=== PATIENT | female | born 1965 | race Caucasian/White ===

== ENCOUNTER 2016-10-13 13:21 | Observation (INO) | payer OTHER ==
[~2016-10-13] VITALS: Ht 165.1 cm; Wt 73.5 kg
[~2016-10-13 13:21] MED LIST: CHOL20002 PO; CITA20TA5 PO; CYCL10TA2 PO; DICY10CA3 PO; DIPH25CA58 PO; GABA-586 PO; IPRA4AER IH; OMEP40CA5 PO; OXYC-244 PO; TIZA4CAP PO; [UNRECOGNIZED DRUG - CODE] PO
[2016-10-13] MEDS ORDERED: PANT40TA5 PO (14:15)
[2016-10-13] MEDS ORDERED: ONDANSETRON PF 4 MG/2 ML VIAL. IV PRN (14:15)
[2016-10-13] MEDS ORDERED: HYDROMORPHONE 2 MG/ML VIAL. IV PRN (14:15)
[2016-10-13] MEDS ORDERED: 0.9 % SODIUM CHLORIDE 10 ML DISP.SYRIN. IV PRN (14:15)
[2016-10-13] MEDS ORDERED: ZOLPIDEM 5 MG TABLET. PO PRN (14:15)
[2016-10-13] MEDS ORDERED: ALPR0.254 PO (14:15)
[2016-10-13] MEDS ORDERED: ZOLP5TAB5 PO (14:15)
[2016-10-13] MEDS ORDERED: ATOR10TA60 PO (14:15)
[2016-10-13] MEDS ORDERED: MAG HYDROX/ALUMINUM HYD/SIMETH 30 ML ORAL.SUSP PO PRN (14:15)
[2016-10-13] MEDS ORDERED: FLUT1DIS5 IH (14:17)
[2016-10-13 15:00] VITALS: BP 177/137
--- NOTE | 2016-10-13 15:04 | PDOC ---
ASSESSMENT/PLAN Assessment/Plan [id number] H&P dictated Problems: KIT GONZALEZ MD Oct 13, 2016 15:04
--- NOTE | 2016-10-13 15:16 | EKG ---
[facility] [address] [place] [address] Test Date: 2016-10-13 Test Time: 15:14:18 Pat Name: ARACELIS HORNE Department: Room: [facility] Gender: F Math Coach: : [id number] Requested By: KIT GONZALEZ Order Number: [id number] Reading MD: Measurements Intervals [place] Rate: 72 P: 53 LA: 156 QRS: 18 QRSD: 72 T: 24 QT: 382 QTc: 420 Interpretive Statements SINUS RHYTHM QRS(T) CONTOUR ABNORMALITY CONSISTENT WITH ANTEROSEPTAL INFARCT PROBABLY OLD ABNORMAL ECG RI6.01 Compared to ECG 05/27/2016 00:37:03 Myocardial infarct finding now present Sinus tachycardia no longer present Atrial abnormality no longer present
[2016-10-13 15:26] VITALS: BP 131/79
[2016-10-13 15:31] VITALS: BP 131/79
[2016-10-13 15:38] LABS: ALBUMIN 3.8 g/dL (3.4-5.0); DIRECT BILIRUBIN 0.1 mg/dL (0.0-0.2); TOTAL BILIRUBIN 0.3 mg/dL (0.2-1.0); TOTAL PROTEIN 7.2 g/dL (6.4-8.2)
--- NOTE | 2016-10-13 16:00 | HP ---
ADMIT DATE: 10/13/2016 LOCATION: Room# 560 HISTORY OF PRESENT ILLNESS: The patient is a 50-year-old lady, who presented to the office today complaining of severe abdominal pain in the epigastric right upper quadrant area associated with nausea and vomiting, of coffee-ground emesis, this morning. She has been having symptoms of reflux and gastritis with indigestion over the last month. She has taken PPI on and off and antacids, but her symptoms continued to worsen and were much worse today. She has not eaten anything this morning to provoke the pain. She denies melena or hematochezia. She tends to be constipated. PAST MEDICAL HISTORY: Significant for hypertension, hyperlipidemia, COPD, gastroesophageal reflux disease, osteoarthritis, chronic back pain, depression, anxiety, bipolar disorder, previous history of vocal cord cyst, was removed. She does have a previous history of hepatitis. SOCIAL HISTORY: She does smoke and continues to smoke and has smoked over 30 years. She uses alcohol occasionally; denies drinking in last couple of days. She denies using drugs. REVIEW OF SYSTEMS: CONSTITUTIONAL: There is no weight loss. No fever or chills. HEENT: Denies visual changes or sore throat. RESPIRATORY: Denies increasing shortness of breath. CARDIOVASCULAR: Denies chest pain. GASTROINTESTINAL: She does have abdominal pain mostly in the epigastric and the right upper quadrant area associated with nausea and vomiting. Denies diarrhea. She does have constipation. Denies melena or hematochezia. GENITOURINARY: She does have stress incontinence. Denies dysuria. MUSCULOSKELETAL: She does have chronic arthritis and back pain, and she does take pain medications regularly that contribute to her constipation. NEUROLOGY: She denies headache or any acute changes in her sensory or motor function. IMPRESSION: 1. Acute abdominal pain with nausea and vomiting, likely gastritis, but we will check amylase and lipase and liver enzymes. Continue with proton pump inhibitor and gastrointestinal consult. She has been on proton pump inhibitor as outpatient and her symptoms continue to worsen. 2. Hypertension, hypertensive cardiovascular disease. 3. Hyperlipidemia. 4. Tobacco abuse. 5. Chronic obstructive pulmonary disease. 6. Osteoarthritis. 7. Depression, anxiety. 8. Previous history of hepatitis. KIT GONZALEZ MD DR: MITESH/shelton JOB#: [id number] / [id number]
--- NOTE | 2016-10-13 16:03 | PDOC2 ---
CONSULT Date of Consult Date of Consult DATE: 10/13/16 TIME: 15:44 Reason for Consult Reason for Consult: Abdominal pain, N, V Referring Physician Referring Physician: Dr. Knowles Source Source: Chart review, Patient History of Present Illness Reason for Visit: 50 y/o female who had onset of severe epigastric "burning" ~1000 today. Describes associated nausea and vomiting. Nature of pain not too dissimilar to her chronic dyspepsia, just more intense. After the vomiting, some more pain in RUQ and right flank. No further emesis and currently feels somewhat better. Has long h/o heartburn w/o dysphagia with associated pc bloating and early satiety. Takes pantoprazole daily, but not timed well. No prior PUD. EGD by Dr. Priscilla Mcnair in 2014 she recalls as "normal"; biopsies were taken, but pathology not accessible in [facility]. Does not use prn antacids, though GI cocktail in Dr. Knowles's office was apparently transiently helpful. No h/o GB or pancreatic disease. Has h/o HCV, treated with interferon along it sounds like historically; has had some testing in PCP office and felt "cured" (current LFT's normal). Still smokes. Denies alcohol use. May take occasional NSAID. Chronic issues with constipation; has used saline cathartics and Miralax with good effect, but takes neither regularly. No diarrhea or melena. Had colonoscopy with the EGD in July 2014 done for "bleeding"; w/in limits of poor prep, this was felt to be OK. Weight and appetite are OK. GI family history is negative. Past Medical History Cardiovascular: HTN Pulmonary: COPD Musculoskeletal: Osteoarthritis, Other (HNP) Past Surgical History Past Surgical History: Other (vocal cord polypectomy) Family History Family History: Cancer (lung/father, lung and uterine/mother), Hypertension Social History ALCOHOL: none Current Problem List Problem List Problems Medical Problems: (1) Abdominal pain Status: Acute Current Medications Current Medications Current Medications Sodium Chloride 3 ml 3 ml PRN DAILY PRN IV AFTER MEDS AND BLOOD DRAWS; Start at 14:15 Potassium Chloride/Sodium Chloride (KCl 20 Meq-NS 1,000 ml Iv Soln) 1,000 ml @ 100 mls/hr Q10H IV ; Start 10/13/16 at 14:06 Ondansetron HCl (Zofran) 4 mg PRN Q6HRS PRN IV NAUSEA/VOMITING; Start 10/13/16 at 14:15 Al Hydroxide/Mg Hydroxide (Mylanta Plus Xs) 30 ml PRN Q3HRS PRN PO HEARTBURN / GAS; Start 10/13/16 at 14:15 Zolpidem Tartrate (Ambien) 5 mg PRN QHS PRN PO INSOMNIA, MAY REPEAT IN 1HR; Start 10/13/16 at 14:15 Hydromorphone HCl (Dilaudid) 0.2 mg PRN Q1HR PRN IV PAIN; Start 10/13/16 at 14: 15 Senna/Docusate Sodium (Senna Plus) 1 tab BID PO ; Start 10/13/16 at 21:00 Pantoprazole Sodium (Protonix) 40 mg DAILYAC PO ; Start 10/14/16 at 07:30 Active Scripts Active Reported Advair 500-50 Diskus (Fluticasone/Salmeterol) 1 Each Disk.w.dev 1 Puff IH BID Pantoprazole Sodium 40 Mg Tablet.dr 20 Mg PO DAILY Atorvastatin Calcium 10 Mg Tablet 10 Mg PO HS Zolpidem Tartrate 5 Mg Tablet 1 Tab PO QHS Alprazolam 0.25 Mg Tablet 1 Tab PO TID Percocet 7.5-325 Mg Tablet (Oxycodone/Acetaminophen) 1 Each Tablet 1 Tab PO QID PRN Combivent Respimat Inhal (Ipratropium/Albuterol Sulfate) 4 Gm Aer.w.adap 20 Mcg IH PRN DAILY PRN Gabapentin 300 Mg Capsule 300 Mg PO BID Tizanidine Hcl 4 Mg Capsule 4 Mg PO PRN Q8HRS Omeprazole 40 Mg Capsule.dr 40 Mg PO DAILY Allergies Allergies: Coded Allergies: No Known Drug Allergies (Unverified , 07/23/14) ROS Review of System Other than chronic back pain, 10-point review negative except as above. Physical Exam General: Alert, Oriented X3, Cooperative, No acute distress Lungs: Clear to auscultation Heart: Regular rate, Normal S1, Normal S2, No murmurs Abdomen: Normal bowel sounds, Soft, No hepatosplenomegaly, No masses, Other ( very mild epigastric tenderness; tender along right costal margin/ribs and right flank musculature) Extremities: No cyanosis, No edema Skin: No significant lesion Neuro: Normal speech, Strength at 5/5 X4 ext, Normal tone, Sensation intact, Cranial nerves 3-12 NL, Reflexes 2+ Psych/Mental Status: Mental status NL, Mood NL MUSCULOSKELETAL: No deformity, No swelling Vitals VITALS Vital Signs Date Time Temp Pulse Resp B/P Pulse Ox O2 Delivery O2 Flow Rate FiO2 10/13/16 15:31 98.1 79 17 131/79 94 Room Air 98.1 Labs Labs Laboratory Tests Test 10/13/16 14:55 Total Bilirubin 0.3mg/dL (0.2-1.0) Direct Bilirubin 0.1mg/dL (0.0-0.2) Aspartate Amino Transf (AST/SGOT) 16U/L (15-37) Alanine Aminotransferase (ALT/SGPT) 21U/L (14-59) Alkaline Phosphatase 73U/L (46-116) Total Protein 7.2g/dL (6.4-8.2) Albumin 3.8g/dL (3.4-5.0) Amylase Level 27U/L (25-115) Lipase 55U/L (73-393) Laboratory Tests Test 10/13/16 14:55 Total Bilirubin 0.3mg/dL (0.2-1.0) Direct Bilirubin 0.1mg/dL (0.0-0.2) Aspartate Amino Transf (AST/SGOT) 16U/L (15-37) Alanine Aminotransferase (ALT/SGPT) 21U/L (14-59) Alkaline Phosphatase 73U/L (46-116) Total Protein 7.2g/dL (6.4-8.2) Albumin 3.8g/dL (3.4-5.0) Amylase Level 27U/L (25-115) Lipase 55U/L (73-393) Assessment/Plan Assessment/Plan IMP: 1. Abdominal pain, N, V. A portion of this is probably from her known GERD (w/o major injury by prior EGD historically). Can't r/o initial presentation of GB disease. Some of her right-sided tenderness is clearly musculoskeletal, perhaps related to the emesis. 2. GERD with chronic issues. Some of her refractoriness may be from less than optimal dosing of her PPI. 3. Chronic constipation, likely idiopathic. 4. H/o HCV, treated with interferon alone; a significant portion of these patients may relapse as effect not as good as with recent newer drugs. REC: 1. Continue PPI; instructed on better timing of dose. 2. OK to use antacids prn on top of the PPI. 3. Sonogram abdomen. Consider PIPIDA with GBEF if negative. 4. Could consider another colonoscopy in a few years since poor prep with last one historically. 5. Since effective, regular use of MOM or Miralax would likely help the constipation. --other pending. Thank you for allowing me to assist in the care of this patient. Please call if questions. MAXWELL MCKEON MD Oct 13, 2016 16:03
--- NOTE | 2016-10-13 16:55 | RAD ---
Chest, 2 views, 10/13/2016: History: Abdominal pain Comparison is made to a study from 06/03/2016. The heart size and pulmonary vascularity are normal. No pulmonary infiltrates are seen. There is no evidence of pleural fluid. Mild spurring is present in the spine. IMPRESSION: No acute cardiopulmonary abnormality is detected.
[2016-10-13] MEDS: NICOTINE 21MG PATCH. TD SCH (17:30)
[2016-10-13 19:15] VITALS: BP 110/65
[2016-10-13] MEDS: BUDESONIDE 0.5 MG/2 ML NEBU. NEB SCH (20:29)
[2016-10-13] MEDS: IPRATRPIUM/ALBUTEROL 0.5/2.5MG 3 ML NEBU. NEB SCH (20:29)
[2016-10-13] MEDS: ATORVASTATIN CALCIUM 10 MG TABLET. PO SCH (20:37)
[2016-10-13] MEDS: ZOLPIDEM 5 MG TABLET. PO SCH (20:37)
[2016-10-13] MEDS: GABAPENTIN 300 MG CAPSULE. PO SCH (20:37)
[2016-10-13] MEDS: SENNOSIDES/DOCUSATE 8.6/50MG TABLET. PO SCH (20:37)
[2016-10-13] MEDS: ALPRAZOLAM 0.25 MG TABLET. PO SCH (20:37)
[2016-10-13] MEDS: OXYCODONE/APAP 7.5/325 TABLET. PO PRN (20:38)
[2016-10-13] MEDS ORDERED: NON FORMULARY ITEM (Fluticasone/Salmeterol (Advair 500-50 Diskus) 1 PUFF) IH SCH (21:00)
[2016-10-13 23:23] VITALS: BP 102/65
[2016-10-14 06:23] LABS: BASO % 0 % (0-3); EOS % 2 % (0-3); HEMATOCRIT 39.7 % (36.0-47.0); HEMOGLOBIN 13.1 g/dL (12.0-15.5); LYMPH # 3.3 x10^3/uL (1.0-4.8); LYMPH % 56 % (24-48); MEAN CORPUSCULAR HEMOGLOBIN 30 pg (25-35); MEAN CORPUSCULAR HGB CONC 33 g/dL (31-37); MEAN CORPUSCULAR VOLUME 90 fL (79-100); MONO % 8 % (0-9); NEUT % 34 % (31-73); PLATELET COUNT 80 x10^3/uL (140-400); RED BLOOD COUNT 4.43 x10^6/uL (3.50-5.40); RED CELL DISTRIBUTION WIDTH 13.5 % (11.5-14.5); WHITE BLOOD COUNT 5.9 x10^3/uL (4.0-11.0)
--- NOTE | 2016-10-14 06:27 | ACF ---
Admit Criteria Forms Admit Criteria Forms Admit Criteria Forms ABDOMINAL PAIN Clinical Indications for Admission to Inpatient Care (Place 'X' for any and all applicable criteria): Admission is indicated for ANY ONE of the following(1)(2)(3)(4)(5): [X]I. Inpatient admission required rather than observation care (Also use Abdominal Pain: Observation Care, as appropriate) because of ANY ONE of the following: [X]a) Severe pain requiring acute inpatient management [ ]b) Identification of etiology/finding that requires inpatient care (eg, aortic dissection, free air) [ ]c) Absent bowel sounds with complete ileus(6) [ ]d) Suspected toxic megacolon [ ]e) Severe electrolyte abnormalities requiring inpatient care [ ]f) High fever or infection requiring inpatient admission as indicated by ANY ONE of following(7)(8): [ ] i) Appropriate outpatient or observational care antimicrobial treatment unavailable, not effective, or not feasible [ ] ii) Documented bacteremia [ ] iii) Temperature > 104.9 degrees F (oral) [ ] iv) T >103.1 F (oral) or < 96.8 F(rectal) that does not respond to all emergency treatment measures [ ]g) Signs of intestinal obstruction [B] [ ]h) Hemodynamic instability [ ]i) IV fluid to replace significant ongoing losses (greater than 3 L/m2 per day) (12)(13) [ ]j) Percutaneous or open drainage (eg, abscess, biliary tract ) procedures [ ]k) Parenteral nutrition regimen that must be implemented on inpatient basis [ ]l) Other condition,treatment or monitoring requiring inpatient admission. [ ]II. Peritoneal signs present [ ]III. Surgery needed that cannot be performed on an ambulatory basis. [ ]IV. Evaluation requires patient to not eat or drink for extended period ( eg, more than 24 hours). [ ]V. Contraindications and/or Inappropriate clinical situations for Observational Care in patients with abdominal pain, when ANY ONE of the following is required: [ ]a) Thorough evaluation is required to prevent catastrophic events due to delays in diagnosing (e.g.Mesenteric ischemia) 1,3 [ ]b) Patient with severe pathology or with chronic symptoms unlikely to improve in the ED stay (3) [ ]. General contraindications and/or Inappropriate clinical situations for Observational Care in patients with abdominal pain, when ANY ONE of the following is required: [ ]a) Prediction of prolongation of LOS based on ANY ONE of the following may be considered as a contraindication for observational care 2, 3, 4, 5, 6, 7, 8, 9, 10, 11 [ ]i) Age > 65 yrs. [ ]ii) Patient arriving by ambulance [ ]iii) Patient with high acuity [ ]iv) Patient requiring vital sign monitoring [ ]v) Patient on IV medication [ ]b) Systolic blood pressures 180mmHg 3,12 [ ]c) Patient with altered mental status including delirium and other alteration of consciousness, (3) [ ]d) Patient whose discharge disposition will be to a intermediate home or rehabilitation home should not be managed in Emergency Department Observation Unit. CMS rule requires 3 days hospital stay before such placement.3,13 [ ]e) Patient with failure to thrive due to broad array of etiologies 3,16,17 [ ]f) Inability to ambulate 3,14 Extended stay beyond goal length of stay may be needed for(2)(3): [ ]a) Persistent abdominal pain with suspected intra-abdominal process [ ]b) Diagnosed condition requiring continued stay (e.g., pancreatitis, complicated diverticulitis) [ ]c) Surgery (e.g., colectomy) The original [employer] content created by [employer] has been revised. The portions of the content which have been revised are identified through the use of italic text or in bold, and [employer] [facility] has neither reviewed nor approved the modified material.All other unmodified content is copyright [employer]. Please see references footnoted in the original [employer] [facility] edition 2016 CYNDIE DEJESUS Oct 14, 2016 06:27
[2016-10-14 06:40] LABS: CALCIUM 8.2 mg/dL (8.5-10.1); CREATININE 0.7 mg/dL (0.6-1.0); GFR 87.9; POTASSIUM 4.3 mmol/L (3.5-5.1)
[2016-10-14 07:00] VITALS: BP 107/81
[2016-10-14] MEDS: IPRATRPIUM/ALBUTEROL 0.5/2.5MG 3 ML NEBU. NEB SCH ×4 (07:35→19:20)
[2016-10-14] MEDS: BUDESONIDE 0.5 MG/2 ML NEBU. NEB SCH ×2 (07:35→19:20)
--- NOTE | 2016-10-14 08:00 | RAD ---
Right upper quadrant abdominal ultrasound, 10/13/2016: History: Right upper quadrant abdominal pain The gallbladder is somewhat elongated. No gallstones are identified. The gallbladder wall is not thickened. The common hepatic duct is dilated measuring 11 mm. No intrahepatic biliary ductal dilatation is seen. There is no evidence of a hepatic mass. The pancreas was largely obscured by overlying bowel. The visualized portions of the right kidney are unremarkable. IMPRESSION: 1. No sonographic evidence of cholelithiasis. 2. Dilated common hepatic duct without evidence of intrahepatic biliary ductal dilatation. Similar findings were present on the 05/26/2016 CT study. Is there laboratory evidence of biliary obstruction?
[2016-10-14] MEDS: SENNOSIDES/DOCUSATE 8.6/50MG TABLET. PO SCH ×2 (09:18→21:20)
[2016-10-14] MEDS: PANTOPRAZOLE 40 MG TABLET.DR. PO SCH ×2 (09:18)
[2016-10-14] MEDS: ALPRAZOLAM 0.25 MG TABLET. PO SCH ×3 (09:18→21:20)
[2016-10-14] MEDS: GABAPENTIN 300 MG CAPSULE. PO SCH ×2 (09:18→21:20)
[2016-10-14] MEDS: NICOTINE 21MG PATCH. TD SCH (09:19)
[2016-10-14] MEDS: OXYCODONE/APAP 7.5/325 TABLET. PO PRN ×3 (09:20→21:36)
--- NOTE | 2016-10-14 10:32 | PDOC ---
SUBJECTIVE Subjective still with pain in RUQ area, pain in epigastric area is better, nausea is better OBJECTIVE Vital Signs Vital Signs Date Time Temp Pulse Resp B/P Pulse Ox O2 Delivery O2 Flow Rate FiO2 10/14/16 07:15 96 Room Air 10/14/16 07:00 97.0 75 18 107/81 96 Room Air 97.0 10/13/16 23:23 97.8 74 16 102/65 93 Room Air 97.8 10/13/16 21:48 18 Room Air 10/13/16 20:38 20 Room Air 10/13/16 20:34 Room Air 10/13/16 20:00 Room Air 10/13/16 19:15 98.2 74 16 110/65 94 Room Air 98.2 10/13/16 15:52 Room Air 10/13/16 15:31 98.1 79 17 131/79 94 Room Air 98.1 10/13/16 15:26 98.1 79 131/79 94 98.1 I & O Intake and Output 10/14/16 07:00 Intake Total 680 ml Balance 680 ml Intake Oral 680 ml # Voids 3 PHYSICAL EXAM Physical Exam still with RUQ tenderness volunteer guarding no rebound otherwise stable ASSESSMENT/PLAN Assessment/Plan 1. Acute abdominal pain with nausea and vomiting slightly improved not resolved 2- RUQ pain and low EF on PIPIDA scan , surgery consult 3. Hypertension, hypertensive cardiovascular disease. 4. Hyperlipidemia. 5. Tobacco abuse. 6. Chronic obstructive pulmonary disease. 7. Osteoarthritis. 8. Depression, anxiety. 9. Previous history of hepatitis C will advance diet and ask surgery to see, if tolerated diet may be able to arrange for cholecystectomy next week if surgery feels appropriate Problems: COMMENT Lab Laboratory Tests Test 10/13/16 14:55 10/14/16 06:00 Total Bilirubin 0.3mg/dL (0.2-1.0) Direct Bilirubin 0.1mg/dL (0.0-0.2) Aspartate Amino Transf (AST/SGOT) 16U/L (15-37) Alanine Aminotransferase (ALT/SGPT) 21U/L (14-59) Alkaline Phosphatase 73U/L (46-116) Total Protein 7.2g/dL (6.4-8.2) Albumin 3.8g/dL (3.4-5.0) Amylase Level 27U/L (25-115) Lipase 55U/L (73-393) White Blood Count 5.9x10^3/uL (4.0-11.0) Red Blood Count 4.43x10^6/uL (3.50-5.40) Hemoglobin 13.1g/dL (12.0-15.5) Hematocrit 39.7% (36.0-47.0) Mean Corpuscular Volume 90fL (79-100) Mean Corpuscular Hemoglobin 30pg (25-35) Mean Corpuscular Hemoglobin Concent 33g/dL (31-37) Red Cell Distribution Width 13.5% (11.5-14.5) Platelet Count 80x10^3/uL (140-400) Neutrophils (%) (Auto) 34% (31-73) Lymphocytes (%) (Auto) 56% (24-48) Monocytes (%) (Auto) 8% (0-9) Eosinophils (%) (Auto) 2% (0-3) Basophils (%) (Auto) 0% (0-3) Neutrophils # (Auto) 2.0x10^3uL (1.8-7.7) Lymphocytes # (Auto) 3.3x10^3/uL (1.0-4.8) Monocytes # (Auto) 0.5x10^3/uL (0.0-1.1) Eosinophils # (Auto) 0.1x10^3/uL (0.0-0.7) Basophils # (Auto) 0.0x10^3/uL (0.0-0.2) Sodium Level 146mmol/L (136-145) Potassium Level 4.3mmol/L (3.5-5.1) Chloride Level 111mmol/L (98-107) Carbon Dioxide Level 26mmol/L (21-32) Anion Gap 9 (6-14) Blood Urea Nitrogen 7mg/dL (7-20) Creatinine 0.7mg/dL (0.6-1.0) Estimated GFR (Cockcroft-Gault) 87.9 Glucose Level 95mg/dL (70-99) Calcium Level 8.2mg/dL (8.5-10.1) KIT GONZALZE MD Oct 14, 2016 10:32
[2016-10-14 11:11] VITALS: BP 112/70
[2016-10-14] MEDS ORDERED: NORMAL SALINE IV ONE (13:15)
[2016-10-14] MEDS ORDERED: SINCALIDE IV ONE (13:15)
[2016-10-14 15:30] VITALS: BP 118/77
--- NOTE | 2016-10-14 15:44 | RAD ---
Radionuclide hepatobiliary scan with gallbladder ejection fraction, 10/14/2016: History: Abdominal pain, nausea and vomiting Following IV injection of 5.5 mCi of technetium 99m Choletec there is prompt uptake of the nuclide from the blood stream by the liver. Activity is present in the bile ducts at 10 minutes and in the gallbladder and small bowel at 15 minutes. Additional imaging was performed following IV injection of 1.5 mcg of cholecystokinin. The gallbladder ejection fraction is 16%. The borderline low range is 30-50%. IMPRESSION: 1. No evidence of cystic duct or common bile duct obstruction. 2. Low gallbladder ejection fraction of 16%.
--- NOTE | 2016-10-14 17:51 | PDOC ---
G I PROGRESS NOTE Subjective Some of her complaints are better. Trying to eat. Physical Exam Lungs clear. RRR Abdomen soft, not tender nor distended. Costal margins are tender. Review of Relevant I have reviewed the following items carlos eduardo (where applicable) has been applied. Labs Laboratory Tests Test 10/13/16 14:55 10/14/16 06:00 Total Bilirubin 0.3mg/dL (0.2-1.0) Direct Bilirubin 0.1mg/dL (0.0-0.2) Aspartate Amino Transf (AST/SGOT) 16U/L (15-37) Alanine Aminotransferase (ALT/SGPT) 21U/L (14-59) Alkaline Phosphatase 73U/L (46-116) Total Protein 7.2g/dL (6.4-8.2) Albumin 3.8g/dL (3.4-5.0) Amylase Level 27U/L (25-115) Lipase 55U/L (73-393) White Blood Count 5.9x10^3/uL (4.0-11.0) Red Blood Count 4.43x10^6/uL (3.50-5.40) Hemoglobin 13.1g/dL (12.0-15.5) Hematocrit 39.7% (36.0-47.0) Mean Corpuscular Volume 90fL (79-100) Mean Corpuscular Hemoglobin 30pg (25-35) Mean Corpuscular Hemoglobin Concent 33g/dL (31-37) Red Cell Distribution Width 13.5% (11.5-14.5) Platelet Count 80x10^3/uL (140-400) Neutrophils (%) (Auto) 34% (31-73) Lymphocytes (%) (Auto) 56% (24-48) Monocytes (%) (Auto) 8% (0-9) Eosinophils (%) (Auto) 2% (0-3) Basophils (%) (Auto) 0% (0-3) Neutrophils # (Auto) 2.0x10^3uL (1.8-7.7) Lymphocytes # (Auto) 3.3x10^3/uL (1.0-4.8) Monocytes # (Auto) 0.5x10^3/uL (0.0-1.1) Eosinophils # (Auto) 0.1x10^3/uL (0.0-0.7) Basophils # (Auto) 0.0x10^3/uL (0.0-0.2) Sodium Level 146mmol/L (136-145) Potassium Level 4.3mmol/L (3.5-5.1) Chloride Level 111mmol/L (98-107) Carbon Dioxide Level 26mmol/L (21-32) Anion Gap 9 (6-14) Blood Urea Nitrogen 7mg/dL (7-20) Creatinine 0.7mg/dL (0.6-1.0) Estimated GFR (Cockcroft-Gault) 87.9 Glucose Level 95mg/dL (70-99) Calcium Level 8.2mg/dL (8.5-10.1) Laboratory Tests Test 10/14/16 06:00 White Blood Count 5.9x10^3/uL (4.0-11.0) Red Blood Count 4.43x10^6/uL (3.50-5.40) Hemoglobin 13.1g/dL (12.0-15.5) Hematocrit 39.7% (36.0-47.0) Mean Corpuscular Volume 90fL (79-100) Mean Corpuscular Hemoglobin 30pg (25-35) Mean Corpuscular Hemoglobin Concent 33g/dL (31-37) Red Cell Distribution Width 13.5% (11.5-14.5) Platelet Count 80x10^3/uL (140-400) Neutrophils (%) (Auto) 34% (31-73) Lymphocytes (%) (Auto) 56% (24-48) Monocytes (%) (Auto) 8% (0-9) Eosinophils (%) (Auto) 2% (0-3) Basophils (%) (Auto) 0% (0-3) Neutrophils # (Auto) 2.0x10^3uL (1.8-7.7) Lymphocytes # (Auto) 3.3x10^3/uL (1.0-4.8) Monocytes # (Auto) 0.5x10^3/uL (0.0-1.1) Eosinophils # (Auto) 0.1x10^3/uL (0.0-0.7) Basophils # (Auto) 0.0x10^3/uL (0.0-0.2) Sodium Level 146mmol/L (136-145) Potassium Level 4.3mmol/L (3.5-5.1) Chloride Level 111mmol/L (98-107) Carbon Dioxide Level 26mmol/L (21-32) Anion Gap 9 (6-14) Blood Urea Nitrogen 7mg/dL (7-20) Creatinine 0.7mg/dL (0.6-1.0) Estimated GFR (Cockcroft-Gault) 87.9 Glucose Level 95mg/dL (70-99) Calcium Level 8.2mg/dL (8.5-10.1) Medications Current Medications Sodium Chloride 3 ml 3 ml PRN DAILY PRN IV AFTER MEDS AND BLOOD DRAWS; Start at 14:15 Potassium Chloride/Sodium Chloride (KCl 20 Meq-NS 1,000 ml Iv Soln) 1,000 ml @ 100 mls/hr Q10H IV Last administered on 10/14/16 09:20; Start 10/13/16 at 14: 06 Ondansetron HCl (Zofran) 4 mg PRN Q6HRS PRN IV NAUSEA/VOMITING; Start 10/13/16 at 14:15 Al Hydroxide/Mg Hydroxide (Mylanta Plus Xs) 30 ml PRN Q3HRS PRN PO HEARTBURN / GAS; Start 10/13/16 at 14:15 Zolpidem Tartrate (Ambien) 5 mg PRN QHS PRN PO INSOMNIA, MAY REPEAT IN 1HR Last administered on 10/13/16 23:07; Start 10/13/16 at 14:15 Hydromorphone HCl (Dilaudid) 0.2 mg PRN Q1HR PRN IV PAIN Last administered on 16:39; Start 10/13/16 at 14:15 Senna/Docusate Sodium (Senna Plus) 1 tab BID PO Last administered on 10/14/16 09:18; Start 10/13/16 at 21:00 Pantoprazole Sodium (Protonix) 40 mg DAILYAC PO Last administered on 10/14/16 09:18; Start 10/14/16 at 07:30 Nicotine (Nicoderm Cq 21mg) 1 patch DAILY TD Last administered on 10/14/16 09: 19; Start 10/13/16 at 17:00 Albuterol/ Ipratropium (Duoneb) 3 ml RTQID NEB Last administered on 10/14/16 15:20; Start 10/13/16 at 20:00 Alprazolam (Xanax) 0.25 mg TID PO Last administered on 10/14/16 15:43; Start 10/13/16 at 21:00 Atorvastatin Calcium (Lipitor) 10 mg HS PO Last administered on 10/13/16 20:37 ; Start 10/13/16 at 21:00 Oxycodone/ Acetaminophen (Percocet 7.5/ 325) 1 tab PRN QID PRN PO PAIN Last administered on 10/14/16 15:42; Start 10/13/16 at 19:00 Pantoprazole Sodium (Protonix) 20 mg DAILY PO ; Start 10/14/16 at 09:00 Zolpidem Tartrate (Ambien) 5 mg QHS PO Last administered on 10/13/16 20:37; Start 10/13/16 at 21:00 Non-Formulary Medication 1 puff BID IH ; Start 10/13/16 at 21:00; Status UNV Gabapentin (Neurontin) 300 mg BID PO Last administered on 10/14/16 09:18; Start 10/13/16 at 21:00 Budesonide 0.5 mg 0.5 mg RTBID NEB Last administered on 10/14/16 07:35; Start 10/13/16 at 20:00 Sincalide/Sodium Chloride (Kinevac/Iv Sodium Chloride 0.9% 50ml) 30 ml @ 120 mls/hr 1X ONCE IV Last administered on 10/14/16 13:15; Start 10/14/16 at 13: 15; Stop 10/14/16 at 13:29; Status DC Active Scripts Active Reported Advair 500-50 Diskus (Fluticasone/Salmeterol) 1 Each Disk.w.dev 1 Puff IH BID Pantoprazole Sodium 40 Mg Tablet.dr 20 Mg PO DAILY Atorvastatin Calcium 10 Mg Tablet 10 Mg PO HS Zolpidem Tartrate 5 Mg Tablet 1 Tab PO QHS Alprazolam 0.25 Mg Tablet 1 Tab PO TID Percocet 7.5-325 Mg Tablet (Oxycodone/Acetaminophen) 1 Each Tablet 1 Tab PO QID PRN Combivent Respimat Inhal (Ipratropium/Albuterol Sulfate) 4 Gm Aer.w.adap 20 Mcg IH PRN DAILY PRN Gabapentin 300 Mg Capsule 300 Mg PO BID Vitals/I & O Vital Sign - Last 24 Hours 10/13/16 10/13/16 10/13/16 10/13/16 19:15 20:00 20:34 20:38 Temp 98.2 98.2 Pulse 74 Resp 16 20 B/P 110/65 Pulse Ox 94 O2 Delivery Room Air Room Air Room Air Room Air 10/13/16 10/13/16 10/14/16 10/14/16 21:48 23:23 07:00 07:15 Temp 97.8 97.0 97.8 97.0 Pulse 74 75 Resp 18 16 18 B/P 102/65 107/81 Pulse Ox 93 96 96 O2 Delivery Room Air Room Air Room Air Room Air 10/14/16 10/14/16 10/14/16 10/14/16 08:00 11:05 11:11 15:21 Temp 97.5 97.5 Pulse 69 Resp 18 B/P 112/70 Pulse Ox 97 97 97 O2 Delivery Room Air Room Air Room Air Room Air 10/14/16 15:30 Temp 97.7 97.7 Pulse 70 Resp 18 B/P 118/77 Pulse Ox 97 O2 Delivery Room Air Intake and Output 10/13/16 10/13/16 10/14/16 15:00 23:00 07:00 Intake Total 0 ml 680 ml Balance 0 ml 680 ml Images Low GBEF noted. Problem List Problems Medical Problems: (1) Abdominal pain Status: Acute Assessment GERD GB dyskinesia Some of her issues seem non-GI as well. Plan of Care: Continue current Tx, Mgmt MAXWELL MCKEON MD Oct 14, 2016 17:51
[2016-10-14 19:00] VITALS: BP 131/79
[2016-10-14] MEDS: ZOLPIDEM 5 MG TABLET. PO SCH (21:20)
[2016-10-14] MEDS: ATORVASTATIN CALCIUM 10 MG TABLET. PO SCH (21:20)
[2016-10-14 22:33] VITALS: BP 114/70
[2016-10-15 02:32] VITALS: BP 109/66
[2016-10-15] MEDS: BUDESONIDE 0.5 MG/2 ML NEBU. NEB SCH (05:59)
[2016-10-15] MEDS: IPRATRPIUM/ALBUTEROL 0.5/2.5MG 3 ML NEBU. NEB SCH ×2 (05:59→11:13)
[2016-10-15 06:20] LABS: HEMATOCRIT 36.3 % (36.0-47.0); HEMOGLOBIN 11.9 g/dL (12.0-15.5); RED BLOOD COUNT 3.98 x10^6/uL (3.50-5.40); RED CELL DISTRIBUTION WIDTH 13.2 % (11.5-14.5); WHITE BLOOD COUNT 7.9 x10^3/uL (4.0-11.0)
[2016-10-15 06:37] LABS: CREATININE 0.8 mg/dL (0.6-1.0); GFR 75.3; POTASSIUM 4.2 mmol/L (3.5-5.1)
[2016-10-15 07:00] VITALS: BP 110/74
[2016-10-15] MEDS: GABAPENTIN 300 MG CAPSULE. PO SCH (08:38)
[2016-10-15] MEDS: SENNOSIDES/DOCUSATE 8.6/50MG TABLET. PO SCH (08:38)
[2016-10-15] MEDS: PANTOPRAZOLE 40 MG TABLET.DR. PO SCH ×2 (08:38→08:39)
[2016-10-15] MEDS: ALPRAZOLAM 0.25 MG TABLET. PO SCH (08:38)
[2016-10-15] MEDS: NICOTINE 21MG PATCH. TD SCH (08:39)
[2016-10-15] MEDS: OXYCODONE/APAP 7.5/325 TABLET. PO PRN (08:51)
--- NOTE | 2016-10-15 11:00 | DISCH ---
DISCHARGE INSTRUCTIONS Condition on Discharge Condition on Discharge: Stable Activity After Discharge Activity Instructions for Disc: No restrictions Diet after Discharge Diet after Discharge: Low Fat Follow-Up Follow up with: per GALLITO Guerrero MD Oct 15, 2016 11:00
--- NOTE | 2016-10-15 11:03 | PDOC ---
Provider Note Provider Note [id number] GALLITO INMAN MD Oct 15, 2016 11:02
[2016-10-15 11:04] VITALS: BP 126/72
[2016-10-15] MEDS ORDERED: PANT20TA2 PO (11:19)
--- NOTE | 2016-10-15 11:49 | PDOC2 ---
CONSULT Date of Consult Date of Consult DATE: 10/15/16 TIME: 11:48 Past Medical History Cardiovascular: HTN Pulmonary: COPD Musculoskeletal: Osteoarthritis, Other (HNP) Past Surgical History Past Surgical History: Other (vocal cord polypectomy) Family History Family History: Cancer (lung/father, lung and uterine/mother), Hypertension Social History ALCOHOL: none Current Problem List Problem List Problems Medical Problems: (1) Abdominal pain Status: Acute (2) Biliary dyskinesia Status: Acute Current Medications Current Medications Current Medications Sodium Chloride 3 ml 3 ml PRN DAILY PRN IV AFTER MEDS AND BLOOD DRAWS; Start at 14:15 Potassium Chloride/Sodium Chloride (KCl 20 Meq-NS 1,000 ml Iv Soln) 1,000 ml @ 100 mls/hr Q10H IV Last administered on 10/15/16 04:09; Start 10/13/16 at 14: 06 Ondansetron HCl (Zofran) 4 mg PRN Q6HRS PRN IV NAUSEA/VOMITING; Start 10/13/16 at 14:15 Al Hydroxide/Mg Hydroxide (Mylanta Plus Xs) 30 ml PRN Q3HRS PRN PO HEARTBURN / GAS; Start 10/13/16 at 14:15 Zolpidem Tartrate (Ambien) 5 mg PRN QHS PRN PO INSOMNIA, MAY REPEAT IN 1HR Last administered on 10/13/16 23:07; Start 10/13/16 at 14:15 Hydromorphone HCl (Dilaudid) 0.2 mg PRN Q1HR PRN IV PAIN Last administered on 16:39; Start 10/13/16 at 14:15 Senna/Docusate Sodium (Senna Plus) 1 tab BID PO Last administered on 10/15/16 08:38; Start 10/13/16 at 21:00 Pantoprazole Sodium (Protonix) 40 mg DAILYAC PO Last administered on 10/15/16 08:38; Start 10/14/16 at 07:30 Nicotine (Nicoderm Cq 21mg) 1 patch DAILY TD Last administered on 10/15/16 08: 39; Start 10/13/16 at 17:00 Albuterol/ Ipratropium (Duoneb) 3 ml RTQID NEB Last administered on 10/15/16 11:13; Start 10/13/16 at 20:00 Alprazolam (Xanax) 0.25 mg TID PO Last administered on 10/15/16 08:38; Start 10/13/16 at 21:00 Atorvastatin Calcium (Lipitor) 10 mg HS PO Last administered on 10/14/16 21:20 ; Start 10/13/16 at 21:00 Oxycodone/ Acetaminophen (Percocet 7.5/ 325) 1 tab PRN QID PRN PO PAIN Last administered on 10/15/16 08:51; Start 10/13/16 at 19:00 Pantoprazole Sodium (Protonix) 20 mg DAILY PO ; Start 10/14/16 at 09:00 Zolpidem Tartrate (Ambien) 5 mg QHS PO Last administered on 10/14/16 21:20; Start 10/13/16 at 21:00 Non-Formulary Medication 1 puff BID IH ; Start 10/13/16 at 21:00; Status UNV Gabapentin (Neurontin) 300 mg BID PO Last administered on 10/15/16 08:38; Start 10/13/16 at 21:00 Budesonide 0.5 mg 0.5 mg RTBID NEB Last administered on 10/15/16 05:59; Start 10/13/16 at 20:00 Sincalide/Sodium Chloride (Kinevac/Iv Sodium Chloride 0.9% 50ml) 30 ml @ 120 mls/hr 1X ONCE IV Last administered on 10/14/16 13:15; Start 10/14/16 at 13: 15; Stop 10/14/16 at 13:29; Status DC Active Scripts Active Reported Protonix (Pantoprazole Sodium) 20 Mg Tablet.dr 20 Mg PO DAILY Advair 500-50 Diskus (Fluticasone/Salmeterol) 1 Each Disk.w.dev 1 Puff IH BID Atorvastatin Calcium 10 Mg Tablet 10 Mg PO HS Zolpidem Tartrate 5 Mg Tablet 1 Tab PO QHS Alprazolam 0.25 Mg Tablet 1 Tab PO TID Percocet 7.5-325 Mg Tablet (Oxycodone/Acetaminophen) 1 Each Tablet 1 Tab PO QID PRN Combivent Respimat Inhal (Ipratropium/Albuterol Sulfate) 4 Gm Aer.w.adap 20 Mcg IH PRN DAILY PRN Gabapentin 300 Mg Capsule 300 Mg PO BID Allergies Allergies: Coded Allergies: No Known Drug Allergies (Unverified , 07/23/14) Vitals VITALS Vital Signs Date Time Temp Pulse Resp B/P Pulse Ox O2 Delivery O2 Flow Rate FiO2 10/15/16 11:14 97 Room Air 10/15/16 11:04 97.9 82 18 126/72 97.9 Labs Labs Laboratory Tests Test 10/13/16 14:55 10/14/16 06:00 10/15/16 05:40 Total Bilirubin 0.3mg/dL (0.2-1.0) Direct Bilirubin 0.1mg/dL (0.0-0.2) Aspartate Amino Transf (AST/SGOT) 16U/L (15-37) Alanine Aminotransferase (ALT/SGPT) 21U/L (14-59) Alkaline Phosphatase 73U/L (46-116) Total Protein 7.2g/dL (6.4-8.2) Albumin 3.8g/dL (3.4-5.0) Amylase Level 27U/L (25-115) Lipase 55U/L (73-393) White Blood Count 5.9x10^3/uL (4.0-11.0) 7.9x10^3/uL (4.0-11.0) Red Blood Count 4.43x10^6/uL (3.50-5.40) 3.98x10^6/uL (3.50-5.40) Hemoglobin 13.1g/dL (12.0-15.5) 11.9g/dL (12.0-15.5) Hematocrit 39.7% (36.0-47.0) 36.3% (36.0-47.0) Mean Corpuscular Volume 90fL (79-100) 91fL (79-100) Mean Corpuscular Hemoglobin 30pg (25-35) 30pg (25-35) Mean Corpuscular Hemoglobin Concent 33g/dL (31-37) 33g/dL (31-37) Red Cell Distribution Width 13.5% (11.5-14.5) 13.2% (11.5-14.5) Platelet Count 80x10^3/uL (140-400) 68x10^3/uL (140-400) Neutrophils (%) (Auto) 34% (31-73) Lymphocytes (%) (Auto) 56% (24-48) Monocytes (%) (Auto) 8% (0-9) Eosinophils (%) (Auto) 2% (0-3) Basophils (%) (Auto) 0% (0-3) Neutrophils # (Auto) 2.0x10^3uL (1.8-7.7) Lymphocytes # (Auto) 3.3x10^3/uL (1.0-4.8) Monocytes # (Auto) 0.5x10^3/uL (0.0-1.1) Eosinophils # (Auto) 0.1x10^3/uL (0.0-0.7) Basophils # (Auto) 0.0x10^3/uL (0.0-0.2) Sodium Level 146mmol/L (136-145) 145mmol/L (136-145) Potassium Level 4.3mmol/L (3.5-5.1) 4.2mmol/L (3.5-5.1) Chloride Level 111mmol/L (98-107) 111mmol/L (98-107) Carbon Dioxide Level 26mmol/L (21-32) 27mmol/L (21-32) Anion Gap 9 (6-14) 7 (6-14) Blood Urea Nitrogen 7mg/dL (7-20) 7mg/dL (7-20) Creatinine 0.7mg/dL (0.6-1.0) 0.8mg/dL (0.6-1.0) Estimated GFR (Cockcroft-Gault) 87.9 75.3 Glucose Level 95mg/dL (70-99) 92mg/dL (70-99) Calcium Level 8.2mg/dL (8.5-10.1) 8.0mg/dL (8.5-10.1) Laboratory Tests Test 10/15/16 05:40 White Blood Count 7.9x10^3/uL (4.0-11.0) Red Blood Count 3.98x10^6/uL (3.50-5.40) Hemoglobin 11.9g/dL (12.0-15.5) Hematocrit 36.3% (36.0-47.0) Mean Corpuscular Volume 91fL (79-100) Mean Corpuscular Hemoglobin 30pg (25-35) Mean Corpuscular Hemoglobin Concent 33g/dL (31-37) Red Cell Distribution Width 13.2% (11.5-14.5) Platelet Count 68x10^3/uL (140-400) Sodium Level 145mmol/L (136-145) Potassium Level 4.2mmol/L (3.5-5.1) Chloride Level 111mmol/L (98-107) Carbon Dioxide Level 27mmol/L (21-32) Anion Gap 7 (6-14) Blood Urea Nitrogen 7mg/dL (7-20) Creatinine 0.8mg/dL (0.6-1.0) Estimated GFR (Cockcroft-Gault) 75.3 Glucose Level 92mg/dL (70-99) Calcium Level 8.0mg/dL (8.5-10.1) Assessment/Plan Assessment/Plan Full note dictated. Wk # [id number] would like to go home and come back Monday as outpatient for l/s Thanks for consult PRINCESS GLOVER MD Oct 15, 2016 11:49
--- NOTE | 2016-10-15 21:02 | DS ---
DATE OF DISCHARGE: 10/15/2016 HOSPITAL SUMMARY: A 50-year-old white female came in with abdominal pain suspicious for biliary tract in origin. Liver function tests, chemistry profile and CBC were all within normal limits. Chest x-ray was clear. Gallbladder sonogram showed dilated common hepatic duct, but no stones, but the HIDA scan showed only 16% ejection fraction and no evidence of cystic duct or common duct obstruction. She has been seen by Dr. Stinson, the surgeon and who plans to do surgery on Monday for cholecystectomy and she wishes to be discharged and follow as an outpatient. FINAL DIAGNOSES: Abdominal pain secondary to biliary dyskinesia and acalculous cholecystitis. OPERATIONS, PROCEDURES, COMPLICATIONS: None. CONSULTATIONS: Dr. Stinson. DISPOSITION: Home meds remain the same. She will come back in 2 days for gallbladder surgery, low fat diet until then. GALLITO INMAN MD DR: TESS/shelton JOB#: [id number] / [id number]
--- NOTE | 2016-10-16 01:11 | CONS ---
DATE OF CONSULTATION: 10/15/2016 SUBJECTIVE: The patient is a 50-year-old with severe epigastric burning, which ____ yesterday morning. She presented to her primary care physician and was admitted for the further evaluation of the same. She has a long history of heart burn associated with some bloating and early satiety. We are asked to see her for evaluation after her PIPIDA scan showed an ejection fraction of 16%. PAST MEDICAL HISTORY: Surgery, she has had polyp removed from her vocal cords. Medically, hypertension, COPD, chronic back pain and osteoarthritis. SOCIAL HISTORY: She does not use alcohol. She is a chronic smoker who has tried to quit many times per her report. FAMILY HISTORY: Positive for lung cancer in her father. REVIEW OF SYSTEMS: GENERAL: Denies chills or fevers. HEENT: No recent earache or sore throat. PULMONARY: Smoker's cough. CARDIAC: No chest pain or palpitations. GASTROINTESTINAL: See history of present illness. ALLERGIES: No known drug allergies. ROUTINE MEDICATIONS: Listed on reconciliation sheet. OBJECTIVE: GENERAL: Physical exam reveals a well-developed, well-nourished female who is awake, alert and oriented, in no acute distress. VITAL SIGNS: 97.9, heart rate 82, blood pressure 126/72. HEENT: She is normocephalic. EOMs intact. NECK: Supple. LUNGS: Clear. HEART: Has regular rate and rhythm. ABDOMEN: Belly is soft and nondistended. PELVIC AND RECTAL: Deferred. EXTREMITIES: Showed no gross skeletal abnormalities. NEUROLOGIC: She is intact. ADMISSION LABORATORY DATA: Showed normal white count. Chemistries were unremarkable. Gallbladder ultrasound showed no evidence of stones. Chest x-ray showed no acute cardiopulmonary abnormality. PIPIDA scan showed an ejection fraction of 16%. IMPRESSION: Postprandial pain, burning and a low ejection fraction by PIPIDA scan. PLAN: Discussed with the patient the options of laparoscopic cholecystectomy with the understanding that she may continue to have symptoms afterwards despite having her gallbladder removed. I explained risks including but not limited to bleeding, infection, injury to the bowel, liver, or bile ducts with resultant bile leak or bowel blockage, pancreatitis. Also the possible occurrence of diarrhea postoperatively or the need for an "open" procedure. She would like to proceed as an outpatient on Monday. Thank you for asking us to see the patient and participate in her care. We will plan to bring her back as an outpatient on Monday for elective cholecystectomy. PRINCESS GLOVER MD DR: DAJA/shelton JOB#: [id number] / [id number]
== END 2016-10-15 11:56 | disposition home or self-care (01) ==
LOC: INTOOBSV 13:37 → 5 SOUTH 13:37
PROVIDERS: ADMIT Internal Medicine; ATTEND Internal Medicine
DX: K82.8 Other specified diseases of gallbladder (principal); K81.9 Cholecystitis, unspecified; R11.2 Nausea with vomiting, unspecified; I11.9 Hypertensive heart disease without heart failure; E78.5 Hyperlipidemia, unspecified; J44.9 Chronic obstructive pulmonary disease, unspecified; M19.90 Unspecified osteoarthritis, unspecified site; F41.9 Anxiety disorder, unspecified; K21.9 Gastro-esophageal reflux disease without esophagitis; G89.29 Other chronic pain; M54.9 Dorsalgia, unspecified; F31.9 Bipolar disorder, unspecified; F17.200 Nicotine dependence, unspecified, uncomplicated; Z86.19 Personal history of other infectious and parasitic diseases; Z80.1 Family history of malignant neoplasm of trachea, bronchus and lung; Z82.49 Family history of ischemic heart disease and other diseases of the circulatory system
CPT/HCPCS: 36415; 71020; 76705; 78226; 80048; 80076; 82150; 83690; 85027; 93005; 94250; 94640; 94760; 96361; 96374; 96375; A9537; G0378; G0379; J1170; J2805; J3480; J7620

== ENCOUNTER 2016-10-18 13:16 | Day surgery (SDC) | payer OTHER ==
[~2016-10-18] VITALS: Ht 165.1 cm; Wt 73.5 kg
[~2016-10-18 13:16] MED LIST changes: +ALPR0.254 PO; +ATOR10TA60 PO; +FENTANYL PF 100 MCG/2 ML VIAL. IV PRN; +FLUT1DIS5 IH; +IV RINGERS,LACTATED 1000ML 1,000 ML IV SCH; +LIDOCAINE 1% 1 ML SYRINGE. ID PRN; +MORPHINE SULFATE 2 MG/ML DISP.SYRIN. IV PRN; +ONDANSETRON PF 4 MG/2 ML VIAL. IV PRN; +PANT20TA2 PO; +PANT40TA5 PO; +PROCHLORPERAZINE 10 MG/2 ML VIAL. IV PRN; +ZOLP5TAB5 PO
[2016-10-18] MEDS ORDERED: FENTANYL PF 100 MCG/2 ML VIAL. ONE ×2 (15:07→17:02)
[2016-10-18] MEDS ORDERED: MIDAZOLAM HCL/PF 2 MG/2 ML VIAL. ONE (15:07)
[2016-10-18] MEDS ORDERED: ROCURONIUM 50 MG/5 ML VIAL. ONE (15:08)
[2016-10-18] MEDS ORDERED: ONDANSETRON PF 4 MG/2 ML VIAL. ONE (15:10)
[2016-10-18] MEDS ORDERED: PROPOFOL 20 ML IV ONE ×2 (15:10→17:37)
[2016-10-18] MEDS ORDERED: LIDOCAINE 2% 100 MG/5 ML SYRINGE. ONE (15:10)
[2016-10-18] MEDS ORDERED: DEXAMETHASONE SOD PHOS 20 MG/5 ML VIAL. ONE (15:10)
[2016-10-18] MEDS ORDERED: SURGICEL HEMOSTAT 4X8 EACH. ONE (15:48)
[2016-10-18] MEDS ORDERED: IOHEXOL 300 MG/ML 50 ML VIAL. ONE (15:48)
[2016-10-18] MEDS ORDERED: BUPIVAC MPF-EPI 0.5%-1:200000 30 ML VIAL. ONE (15:48)
[2016-10-18] MEDS: CEFAZOLIN 2GM PREMIX 50 ML IV PRN (16:25)
[2016-10-18] MEDS ORDERED: GLYCOPYRROLATE 1 MG/5 ML VIAL. ONE (17:02)
[2016-10-18] MEDS ORDERED: NEOSTIGMINE METHYLSULFATE 5 MG/5 ML SYRINGE. ONE (17:03)
--- NOTE | 2016-10-18 17:31 | RAD ---
Indication intraoperative cholangiogram. For members of the Department of surgery fluoroscopy was provided. 4 films were obtained with the C-arm. Fluoroscopy time associated with the imaging was 30 seconds No definite filling defects are seen. The common hepatic and common bile ducts are prominent. This has been referenced on previous exams. The etiology is not certain. Extraluminal process or obstructing process at the level of the ampulla are not excluded.
[2016-10-18] MEDS ORDERED: MORPHINE SULFATE 10 MG/ML VIAL. ONE (17:35)
--- NOTE | 2016-10-18 17:43 | PDOC ---
BRIEF OPERATIVE NOTE Date: Oct 18, 2016 Pre-Op Diagnosis biliary dyskinesia Post-Op Diagnosis same, adhesions Procedure Performed l/s cholecystectomy with cholangiograms, MEGAN Surgeon Milad Anesthesia Type: General Blood Loss 50cc IV Fluid 1200cc Specimens Obtained GB Findings supple GB with lots of omental adhesions, normal grams, Dgos-Ddlggf-Wsfule adhesions Complications none Additional Remarks Wk # PRINCESS GLOVER MD Oct 18, 2016 17:43
[2016-10-18] MEDS ORDERED: KETOROLAC TROMETHAMINE 30 MG/ML INJ. ONE (17:58)
[2016-10-18] MEDS ORDERED: ACETAMINOPHEN INTRAVENOUS 100 ML IV ONE ×2 (17:58→18:15)
[2016-10-18] MEDS: FENTANYL PF 100 MCG/2 ML VIAL. IV PRN ×2 (18:04→18:17)
[2016-10-18] MEDS: HYDROMORPHONE 2 MG/ML VIAL. IV PRN ×4 (18:05→18:49)
[2016-10-18] MEDS ORDERED: OXYCODONE/APAP 5/325 TABLET. ONE (18:06)
[2016-10-18] MEDS ORDERED: KETOROLAC TROMETHAMINE 30 MG/ML INJ. IV ONE (18:15)
[2016-10-18] MEDS ORDERED: OXYCODONE/APAP 5/325 TABLET. PO ONE (18:15)
[2016-10-18] MEDS ORDERED: OXYC-323 PO (18:34)
[2016-10-18] MEDS ORDERED: DOCU100T11 PO (18:34)
--- NOTE | 2016-10-18 18:44 | DISCH ---
DISCHARGE INSTRUCTIONS Condition on Discharge Condition on Discharge: Stable Activity After Discharge Activity Instructions for Disc: Activity as tolerated, Avoid exertion Lifting Instructions after Dis: No heavy lifting Driving Instructions after Dis: Do not drive (3-4 day) Diet after Discharge Diet after Discharge: Regular Wound Incision Care Wound/Incision Care: Ice to area for comfort Other wound/incision instructi: quinn shower Follow-Up Follow up with: Milad next week PRINCESS GLOVER MD Oct 18, 2016 18:44
[2016-10-18 19:00] VITALS: BP 136/70
--- NOTE | 2016-10-20 13:49 | PATHOLOGY ---
PATHOLOGY REPORT * * * * * * * * FINAL DIAGNOSIS: Gallbladder, cholecystectomy: - Chronic cholecystitis. - No gallstones present. (THOMPSONM:; d/t: 10/20/16) REPORT ELECTRONICALLY SIGNED BY: Rey Yoon M.D. DATE/TIME: 10/20/2016 13:48 * * * * * * * * GROSS PATHOLOGY: Received in formalin labeled "Lindsey Horne, gallbladder and contents," is a 10.3 x 3.4 x 3.1 cm, intact gallbladder with blue-cordero serosal surfaces. Opening the gallbladder reveals a velvety, bile-stained mucosa and an average wall thickness of 0.1 cm. Calculi are not present and no masses are noted grossly. Running Instructor sections from the body and fundus are submitted along with the proximal margin in cassette A1. (CAA; 10/19/2016) INITIAL CPT CODE(S): A; 62750 Professional services performed by [facility] [place] [address] Technical services performed by [facility] at [address] [place] [address]. SPECIMEN(S) RECEIVED: A.Gallbladder and contents CLINICAL HISTORY: Biliary dyskinesia PATIENT: LINDSEY HORNE /AGE: 5 1965 (Age: 50) PATIENT #: [id number] ALT CASE #: SPECIMEN COLLECTION DATE: 10/18/2016 SPECIMEN RECEIVED DATE: 10/19/2016 [facility] - [address] [place] [address] - PHONE: [phone] * * * END OF REPORT * * *
--- NOTE | 2016-10-26 14:09 | OP ---
DATE OF SURGERY: 10/18/2016 condition DIAGNOSIS: Biliary dyskinesia. POSTOPERATIVE DIAGNOSIS: Biliary dyskinesia, adhesions. PROCEDURE: Laparoscopic cholecystectomy with cholangiogram, lysis of adhesions. SURGEON: Princess Glover M.D. ANESTHESIA: General. ESTIMATED BLOOD LOSS: 50 mL. INTRAVENOUS FLUIDS: 1200. INDICATIONS: The patient is a 50-year-old with postprandial right upper quadrant pain. She has a low ejection fraction. She was brought for cholecystectomy. OPERATIVE FINDINGS: The gallbladder was supple. Cholangiograms were normal. There were significant omental adhesions encasing the gallbladder and there were also Iyps-Jrcn-Msqsjf adhesions present. DESCRIPTION OF PROCEDURE: The patient brought to the operating suite, given a general endotracheal anesthetic and the abdomen prepped and draped in usual sterile fashion. A supraumbilical incision was made and a 5-mm Visiport used to gain access into the abdominal cavity, taking care to avoid injury to abdominal contents. Pneumoperitoneum established. Camera inserted and inspection carried out with results as noted above. With the table in reverse Trendelenburg rolled to the left, the epigastric, midclavicular, and lateral ports were placed under direct vision. The gallbladder was retracted superolaterally and omental adhesions were carefully taken down with blunt and cautery dissection avoiding injury to the adjacent bowel. The cystic duct and cystic artery were isolated. The duct was clipped on the gallbladder side. Cholangiograms were made. These were normal. In light of this, the catheter was removed. The cystic duct was clipped and divided taking care to avoid injury or compromise of the common duct. The cystic artery was clipped and divided and the gallbladder freed from the bed and placed in an EndoCatch bag. Good hemostasis was present. The table was returned to level. Gallbladder delivered through the epigastric incision. The port was then replaced and using a "hot" scissor, the Kfos-Wvhz-Mbrjvv adhesions were carefully taken down. Good hemostasis was present. Port removed and the epigastric incision closed with interrupted 0 Vicryl suture. At 6 cm of water, no bleeding seen from the epigastric closure or from the midclavicular or lateral port sites after their removal. Abdomen decompressed, camera slowly removed, no bleeding seen. Skin incisions closed with subcuticular 4-0 Monocryl. Steri-Strips and sterile dressings applied. The patient awakened from her anesthetic and taken to the recovery room in satisfactory condition. PRINCESS GLOVER MD DR: DAJA/shelton JOB#: [id number] / [id number]
== END 2016-10-18 19:20 | disposition home or self-care (01) ==
LOC: SURG 13:16
PROVIDERS: ATTEND Surgery
DX: K82.8 Other specified diseases of gallbladder (principal); E78.00 Pure hypercholesterolemia, unspecified; I10 Essential (primary) hypertension; J44.9 Chronic obstructive pulmonary disease, unspecified; K21.9 Gastro-esophageal reflux disease without esophagitis; M19.90 Unspecified osteoarthritis, unspecified site; F41.9 Anxiety disorder, unspecified; F32.9 Major depressive disorder, single episode, unspecified; Z98.51 Tubal ligation status
CPT/HCPCS: 47563; 74300; 88304; C1782; J0131; J0690; J0780; J1100; J1170; J1885; J2250; J2270; J2405; J2704; J2710; J3010; J3490; J7030; J7120; Q9967

== ENCOUNTER 2017-06-06 11:58 | Emergency (ER) | payer MEDICAID, OTHER ==
[~2017-06-06] VITALS: Ht 165.1 cm; Wt 77.1 kg
[~2017-06-06 11:58] MED LIST changes: +DOCU100T11 PO; -FENTANYL PF 100 MCG/2 ML VIAL. IV PRN; -IV RINGERS,LACTATED 1000ML 1,000 ML IV SCH; -LIDOCAINE 1% 1 ML SYRINGE. ID PRN; -MORPHINE SULFATE 2 MG/ML DISP.SYRIN. IV PRN; -ONDANSETRON PF 4 MG/2 ML VIAL. IV PRN; -OXYC-244 PO; +OXYC-323 PO; +OXYC-327 PO; -PROCHLORPERAZINE 10 MG/2 ML VIAL. IV PRN
--- NOTE | 2017-06-06 12:22 | PHYS DOC ---
Past Medical History Past Medical History: Anxiety, COPD, Depression, GERD Additional Past Medical Histor: hep c ( pt reports this is " cleared" up) a sof 06/06/17 Past Surgical History: No Surgical History Alcohol Use: None Drug Use: None Adult General Chief Complaint Chief Complaint: CHEST PAIN HPI HPI Patient is a 51 year old female who presents with complaint of cough and shortness of breath. Patient states that her symptoms started 4 days ago and have progressively gotten worse over the past 1-2 days. Patient states that she has been having coughing and now has developed chest pain as a result of her coughing. The patient states that she has had subjective fevers at home. Patient has history of COPD and states that her symptoms of COPD have been worsening over the past few days. Patient states that she is using Advair daily and has an albuterol inhaler but has not used any today. Patient rates her pain currently is 8 out of 10. Patient states that she is also having sore throat and bilateral ear pain. The patient is concerned that she may be developing pneumonia as she has had a history of pneumonia in the past. Review of Systems Review of Systems Constitutional: Fever, chills[] Eyes: Denies change in visual acuity, redness, or eye pain [] HENT: Sore throat[] Respiratory: Cough, shortness of breath[] Cardiovascular: Chest pain, denies edema[] GI: Denies abdominal pain, nausea, vomiting, bloody stools or diarrhea [] : Denies dysuria or hematuria [] Musculoskeletal: Bodyaches[] Integument: Denies rash or skin lesions [] Neurologic: Denies headache, focal weakness or sensory changes [] All other systems were reviewed and found to be within normal limits, except as documented in this note. Current Medications Current Medications Current Medications Medications (Trade) Dose Ordered Sig/Adal Start Time Stop Time Status Last Admin Dose Admin Albuterol Sulfate (Ventolin Neb Soln) 5 mg 1X ONCE 06/06/17 13:30 06/06/17 13:31 DC 06/06/17 13:49 5 MG Albuterol/ Ipratropium (Duoneb) 6 ml 1X ONCE 06/06/17 12:30 06/06/17 12:31 DC 06/06/17 12:38 6 ML Fentanyl Citrate (Fentanyl 2ml Vial) 50 mcg PRN Q15MIN PRN 06/06/17 12:30 06/07/17 12:29 06/06/17 12:52 50 MCG Methylprednisolone Sodium Succinate (SOLU-Medrol 125MG VIAL) 125 mg 1X ONCE 06/06/17 12:30 06/06/17 12:31 DC 06/06/17 12:52 125 MG Ondansetron HCl (Zofran) 4 mg 1X ONCE 06/06/17 12:30 06/06/17 12:31 DC 06/06/17 12:52 4 MG Allergies Allergies Allergies Coded Allergies Type Severity Reaction Last Updated Verified No Known Drug Allergies 10/18/16 No Physical Exam Physical Exam Constitutional: Alert, afebrile, appears in mild respiratory distress. [] HENT: Normocephalic, atraumatic, bilateral external ears normal, oropharynx moist, no oral exudates, nose normal. [] Eyes: PERRLA, EOMI, conjunctiva normal, no discharge. [] Neck: Normal range of motion, no tenderness, supple, no stridor. [] Cardiovascular:Heart rate regular rhythm, no murmur [] Lungs & Thorax: Mild to moderate restriction of air movement bilaterally, expiratory wheezes bilaterally, no rales[] Abdomen: Bowel sounds normal, soft, no tenderness, no masses, no pulsatile masses. [] Skin: Warm, dry, no erythema, no rash. [] Back: No tenderness, no CVA tenderness. [] Extremities: No tenderness, no cyanosis, no clubbing, ROM intact, no edema. [] Neurologic: Alert and oriented X 3, normal motor function, normal sensory function, no focal deficits noted. [] Current Patient Data Vital Signs Vital Signs Date Time Temp Pulse Resp B/P (MAP) Pulse Ox O2 Delivery O2 Flow Rate FiO2 06/06/17 12:52 16 06/06/17 12:38 Room Air 06/06/17 12:03 97.9 81 140/86 (104) 94 97.9 Lab Values Laboratory Tests Test 06/06/17 12:20 White Blood Count 11.2 x10^3/uL (4.0-11.0) H Red Blood Count 4.40 x10^6/uL (3.50-5.40) Hemoglobin 13.4 g/dL (12.0-15.5) Hematocrit 40.6 % (36.0-47.0) Mean Corpuscular Volume 92 fL (79-100) Mean Corpuscular Hemoglobin 31 pg (25-35) Mean Corpuscular Hemoglobin Concent 33 g/dL (31-37) Red Cell Distribution Width 13.0 % (11.5-14.5) Platelet Count 133 x10^3/uL (140-400) L Neutrophils (%) (Auto) 53 % (31-73) Lymphocytes (%) (Auto) 36 % (24-48) Monocytes (%) (Auto) 10 % (0-9) H Eosinophils (%) (Auto) 1 % (0-3) Basophils (%) (Auto) 1 % (0-3) Neutrophils # (Auto) 5.9 x10^3uL (1.8-7.7) Lymphocytes # (Auto) 4.0 x10^3/uL (1.0-4.8) Monocytes # (Auto) 1.1 x10^3/uL (0.0-1.1) Eosinophils # (Auto) 0.1 x10^3/uL (0.0-0.7) Basophils # (Auto) 0.1 x10^3/uL (0.0-0.2) Sodium Level 141 mmol/L (136-145) Potassium Level 3.8 mmol/L (3.5-5.1) Chloride Level 105 mmol/L (98-107) Carbon Dioxide Level 26 mmol/L (21-32) Anion Gap 10 (6-14) Blood Urea Nitrogen 7 mg/dL (7-20) Creatinine 0.7 mg/dL (0.6-1.0) Estimated GFR (Cockcroft-Gault) 87.5 BUN/Creatinine Ratio 10 (6-20) Glucose Level 120 mg/dL (70-99) H Calcium Level 8.9 mg/dL (8.5-10.1) Total Bilirubin 0.2 mg/dL (0.2-1.0) Aspartate Amino Transferase (AST) 21 U/L (15-37) Alanine Aminotransferase (ALT) 25 U/L (14-59) Alkaline Phosphatase 90 U/L (46-116) Creatine Kinase 153 U/L (26-192) Creatine Kinase MB (Mass) 0.9 ng/mL (0.0-3.6) Creatine Kinase MB Relative Index 0.6 % (0-4) Troponin I Quantitative < 0.017 ng/mL (0.000-0.055) Total Protein 7.0 g/dL (6.4-8.2) Albumin 3.6 g/dL (3.4-5.0) Albumin/Globulin Ratio 1.1 (1.0-1.7) Influenza Type A Antigen Negative (NEGATIVE) Influenza Type B Antigen Negative (NEGATIVE) Laboratory Tests 06/06/17 12:20 Laboratory Tests 06/06/17 12:20 EKG EKG Interpreted by me: Heart rate 85, sinus rhythm, normal intervals, normal axis, no acute ST/T-wave abnormalities present[] Radiology/Procedures Radiology/Procedures [facility] [address] [place] [address] IMAGING REPORT Signed PATIENT: ARACELIS HORNE ACCOUNT: [id number] : 1965 LOCATION: ER AGE: 51 SEX: F EXAM STATUS: PRE ER ORD. PHYSICIAN: EMY OROZCO MD REASON: cough, chest pain PROCEDURE: CHEST PA & LATERAL Indication: Cough and chest pain. Time of exam 12:33 PM Correlation is made with prior study from 10/13/2016. FINDINGS: The heart size is normal. The lungs are clear. No pleural effusion or pneumothorax is identified. The pulmonary vascularity is normal. IMPRESSION: No acute abnormality detected. DICTATED and SIGNED BY: CIERRA KELSEY MD DATE: 06/06/17 1238 CC: EMY OROZCO MD; KIT GONZALEZ MD ~ [] Course & Med Decision Making Course & Med Decision Making Pertinent Labs and Imaging studies reviewed. (See chart for details) The patient was given 2 unit doses of DuoNeb and 2 unit doses of albuterol while in the emergency department to help with her breathing. On reevaluation, the patient states her symptoms have improved. The patient was also given Solu- Medrol in the emergency department. Patient's chest x-ray shows no evidence of pneumonia. Patient is afebrile and lab work is unremarkable. The patient does not appear to have an acute bacterial pneumonia. The patient is showing symptoms of acute COPD exacerbation. The patient will be treated with albuterol and prednisone. Advised follow-up with primary doctor in 2-3 days for reevaluation. Advised return emergency department for any worsening symptoms. Patient voiced understanding and in agreement with treatment plan. Dragon Disclaimer Dragon Disclaimer This electronic medical record was generated, in whole or in part, using a voice recognition dictation system. Departure Departure Impression: Primary Impression: COPD exacerbation Disposition: HOME, SELF-CARE Condition: IMPROVED Referrals: KIT GONZALEZ MD (PCP) Patient Instructions: Chronic Obstructive Pulmonary Disease Additional Instructions: Follow-up with your primary doctor in 2-3 days for reevaluation. Return to the emergency department for any worsening symptoms. Scripts Albuterol Sulfate (PROAIR HFA INHALER) 8.5 Gm Hfa.aer.ad 2-4 PUFF INH Q4-6HRS, #1 INHALER 0 Refills Prov: EMY OROZCO MD 06/06/17 Prednisone (PREDNISONE) 10 Mg Tablet 10 MG PO UD for PREDNISONE TAPER, #39 TAB 0 Refills Take 3 tablets by mouth twice a day for 3 days, then take 2 tablets by mouth twice a day for 3 days, then take 1 tablet by mouth twice a day for 3 days, then take 1 tablet by mouth daily x 3 days, then stop. Prov: EMY OROZCO MD 06/06/17 EMY OROZCO MD Jun 06, 2017 12:22
[2017-06-06] MEDS ORDERED: methylPREDNISolone SOD SUCC PF 125 MG/2 ML VIAL. IV ONE (12:30)
[2017-06-06] MEDS ORDERED: fentaNYL PF VIAL 100 MCG/2 ML VIAL IV PRN (12:30)
[2017-06-06] MEDS ORDERED: IPRATRPIUM/ALBUTEROL 0.5/2.5MG 3 ML NEBU. NEB ONE (12:30)
[2017-06-06] MEDS ORDERED: ONDANSETRON PF 4 MG/2 ML VIAL. IV ONE (12:30)
[2017-06-06 12:33] LABS: BASO # 0.1 x10^3/uL (0.0-0.2); BASO % 1 % (0-3); EOS % 1 % (0-3); HEMATOCRIT 40.6 % (36.0-47.0); HEMOGLOBIN 13.4 g/dL (12.0-15.5); LYMPH % 36 % (24-48); MEAN CORPUSCULAR HEMOGLOBIN 31 pg (25-35); MEAN CORPUSCULAR HGB CONC 33 g/dL (31-37); MEAN CORPUSCULAR VOLUME 92 fL (79-100); MONO % 10 % (0-9); NEUT % 53 % (31-73); PLATELET COUNT 133 x10^3/uL (140-400); WHITE BLOOD COUNT 11.2 x10^3/uL (4.0-11.0)
--- NOTE | 2017-06-06 12:43 | RAD ---
Indication: Cough and chest pain. Time of exam 12:33 PM Correlation is made with prior study from 10/13/2016. FINDINGS: The heart size is normal. The lungs are clear. No pleural effusion or pneumothorax is identified. The pulmonary vascularity is normal. IMPRESSION: No acute abnormality detected.
[2017-06-06 12:54] LABS: OBC FLU VALID
[2017-06-06 13:05] LABS: CALCIUM 8.9 mg/dL (8.5-10.1); CREATININE 0.7 mg/dL (0.6-1.0); GFR 87.5; POTASSIUM 3.8 mmol/L (3.5-5.1)
[2017-06-06 13:11] LABS: ALBUMIN 3.6 g/dL (3.4-5.0); ALBUMIN/GLOBULIN RATIO 1.1 (1.0-1.7); TOTAL BILIRUBIN 0.2 mg/dL (0.2-1.0)
[2017-06-06 13:18] LABS: CKMB MASS 0.9 ng/mL (0.0-3.6)
[2017-06-06] MEDS ORDERED: ALBUTEROL SULFATE 2.5 MG/3 ML NEBU. NEB ONE (13:30)
--- NOTE | 2017-06-06 13:37 | EKG ---
[facility] [address] [place] [address] Test Date: 2017-06-06 Test Time: 12:07:29 Pat Name: ARACELIS HORNE Department: Room: Gender: F Supervisor [employer]: : 1965 Requested By: EMY OROZCO Order Number: [id number] Reading MD: Henrik Orlando MD Measurements Intervals [place] Rate: 85 P: 58 UT: 144 QRS: 34 QRSD: 70 T: 36 QT: 352 QTc: 419 Interpretive Statements SINUS RHYTHM CANNOT RULE OUT PRIOR ANTEROSEPTAL INFARCT Electronically Signed On 06-15-2017 15:57:10 INSTRUMENT PANEL ASSEMBLER by Henrik Orlando MD
[2017-06-06] MEDS ORDERED: PROAIR HFA8.5 GM INH (13:56)
[2017-06-06] MEDS ORDERED: PRED-220 PO (13:56)
[2017-06-06 14:21] VITALS: BP 139/60
== END 2017-06-06 14:22 | disposition home or self-care (01) ==
LOC: ER 11:58
DX: J44.1 Chronic obstructive pulmonary disease with (acute) exacerbation (principal); H92.03 Otalgia, bilateral; F41.9 Anxiety disorder, unspecified; K21.9 Gastro-esophageal reflux disease without esophagitis; F32.9 Major depressive disorder, single episode, unspecified
CPT/HCPCS: 36415; 71020; 80053; 82553; 84484; 85025; 87804; 93005; 94640; 96374; 96375; 99285; J2405; J2930; J3010; J7613; J7620; 94250

== ENCOUNTER 2019-06-28 17:53 | Emergency (ER) | payer OTHER ==
[~2019-06-28] VITALS: Ht 165.1 cm; Wt 70.8 kg
[~2019-06-28 17:53] MED LIST changes: +ALBU2.5V8 INH; -CITA20TA5 PO; +CITA20TA6 PO; +FLUT1BLS3 IH; -GABA-586 PO; +GABA300C18 PO; +LACT1CAP19 PO; +LAMO150T4 PO; +OLME40TA12 PO; +OMEP40CA45 PO; -OMEP40CA5 PO; +OSEL75CA PO; -OXYC-323 PO; -OXYC-327 PO; +OXYC1TAB15 PO; +OXYC1TAB19 PO; -PANT40TA5 PO; +PANT40TA77 PO; +PRED-220 PO
--- NOTE | 2019-06-28 19:10 | PHYS DOC ---
Past Medical History Past Medical History: Anxiety, COPD, Depression, GERD, Other Additional Past Medical Histor: hep c ( pt reports this is " cleared" up) a sof 06/06/17 (ABISAI DAVIS APRN) Past Surgical History: Cholecystectomy (ABISAI DAVIS APRN) Alcohol Use: None Drug Use: None (ABISAI DAVIS APRN) Attending Signature I have participated in the care of this patient and I have reviewed and agree with all pertinent clinical information above including history, exam, and recommendations. (OLAYINKA BAKER MD) Adult General Chief Complaint Chief Complaint: DIZZY/LIGHT HEADED HPI HPI Patient is a 53 year old [female] who presents with [reported dizziness for the last 6 days, weakness. Patient reports she had been admitted here recently for COPD and CHF, has been put on antibiotics and then steroids. Reports she just noticed the steroids today, but for the last few days she has just been feeling ill states she feels dizzy frequent. Reports she has been vomiting for a few days, has not vomited for the last 2 days, but she does report she feels a little bit nauseous now patient reports she was told 1 of her blood levels were low and she needed to keep an eye on it, but she did not know what 1. Denies any pain. Denies any visual changes. States she has been driving an ambulatory as normal for the last few days] (ABISAI DAVIS APRN) Review of Systems Review of Systems Constitutional: Denies fever or chills [] Eyes: Denies change in visual acuity, redness, or eye pain [] HENT: Denies nasal congestion or sore throat does report she has some discomfort to her left ear while she was in the hospital[] Respiratory: Denies cough or shortness of breath [] Cardiovascular: No additional information not addressed in HPI [] GI: Denies abdominal pain, bloody stools or diarrhea reports she still feels a little bit nauseous at this time, reports she has not vomited for the last 2 days[] : Denies dysuria or hematuria [] Musculoskeletal: Denies back pain or joint pain [] Integument: Denies rash or skin lesions [] Neurologic: Denies headache, focal weakness or sensory changes does report she feels dizzy [] Endocrine: Denies polyuria or polydipsia [] All other systems were reviewed and found to be within normal limits, except as documented in this note. (ABISAI DAVIS APRN) Current Medications Current Medications Current Medications Medications (Trade) Dose Ordered Sig/Adal Start Time Stop Time Status Last Admin Dose Admin Albuterol/ Ipratropium (Duoneb) 3 ml 1X ONCE 06/28/19 19:15 06/28/19 19:16 DC 06/28/19 19:49 3 ML Ondansetron HCl (Zofran) 4 mg 1X ONCE 06/28/19 19:15 06/28/19 19:16 DC 06/28/19 19:15 4 MG Sodium Chloride 1,000 ml @ 1,000 mls/hr 1X ONCE 06/28/19 19:15 06/28/19 20:14 DC 06/28/19 19:15 1,000 MLS/HR (OLAYINKA BAKER MD) Allergies Allergies Allergies Coded Allergies Type Severity Reaction Last Updated Verified No Known Drug Allergies 07/11/17 No (OLAYINKA BAKER MD) Physical Exam Physical Exam Constitutional: Well developed, well nourished, no acute distress, non-toxic appearance. Sitting upright in bed, moving head without any noted discomfort or noted signs of dizziness[] HENT: Normocephalic, atraumatic, bilateral external ears normal, oropharynx moist, no oral exudates, nose normal. [] Eyes: PERRLA, EOMI, conjunctiva normal, no discharge. No nystagmus noted [] Neck: Normal range of motion, no tenderness, supple, no stridor. [] Cardiovascular:Heart rate regular rhythm, no murmur [] Lungs & Thorax: Faint wheezing noted to bilateral upper lobes of chest posteriorly the patient conversation with no noted air hunger speaking in multiple word sentences[] Abdomen: Bowel sounds normal, soft, no tenderness, no masses, no pulsatile masses. [] Skin: Warm, dry, no erythema, no rash. [] Back: No tenderness, no CVA tenderness. [] Extremities: No tenderness, no cyanosis, no clubbing, ROM intact, no edema. [] Neurologic: Alert and oriented X 3, normal motor function, normal sensory function, no focal deficits noted. [] Psychologic: Affect normal, judgement normal, mood normal. [] (SUSAN,ABISAI E [employer]ET[employer]N) Current Patient Data Vital Signs Vital Signs Date Time Temp Pulse Resp B/P (MAP) Pulse Ox O2 Delivery O2 Flow Rate FiO2 06/28/19 21:40 80 18 98 06/28/19 19:51 Room Air 06/28/19 18:50 98.2 168/77 (107) 98.2 (OLAYINKA BAKER MD) Lab Values Laboratory Tests Test 06/28/19 19:15 White Blood Count 9.6 x10^3/uL (4.0-11.0) Red Blood Count 4.22 x10^6/uL (3.50-5.40) Hemoglobin 12.9 g/dL (12.0-15.5) Hematocrit 39.0 % (36.0-47.0) Mean Corpuscular Volume 92 fL (79-100) Mean Corpuscular Hemoglobin 31 pg (25-35) Mean Corpuscular Hemoglobin Concent 33 g/dL (31-37) Red Cell Distribution Width 13.3 % (11.5-14.5) Platelet Count 282 x10^3/uL (140-400) Neutrophils (%) (Auto) 44 % (31-73) Lymphocytes (%) (Auto) 48 % (24-48) Monocytes (%) (Auto) 7 % (0-9) Eosinophils (%) (Auto) 1 % (0-3) Basophils (%) (Auto) 0 % (0-3) Neutrophils # (Auto) 4.2 x10^3/uL (1.8-7.7) Lymphocytes # (Auto) 4.6 x10^3/uL (1.0-4.8) Monocytes # (Auto) 0.7 x10^3/uL (0.0-1.1) Eosinophils # (Auto) 0.1 x10^3/uL (0.0-0.7) Basophils # (Auto) 0.0 x10^3/uL (0.0-0.2) Segmented Neutrophils % 42 % (35-66) Lymphocytes % 48 % (24-48) Atypical Lymphocytes % (Manual) 3 % (0-0) H Monocytes % 5 % (0-10) Eosinophils % 2 % (0-5) Platelet Estimate Adequate (ADEQUATE) Sodium Level 140 mmol/L (136-145) Potassium Level 3.8 mmol/L (3.5-5.1) Chloride Level 103 mmol/L (98-107) Carbon Dioxide Level 31 mmol/L (21-32) Anion Gap 6 (6-14) Blood Urea Nitrogen 13 mg/dL (7-20) Creatinine 0.7 mg/dL (0.6-1.0) Estimated GFR (Cockcroft-Gault) 86.9 BUN/Creatinine Ratio 19 (6-20) Glucose Level 104 mg/dL (70-99) H Calcium Level 8.9 mg/dL (8.5-10.1) Total Bilirubin 0.1 mg/dL (0.2-1.0) L Aspartate Amino Transferase (AST) 42 U/L (15-37) H Alanine Aminotransferase (ALT) 72 U/L (14-59) H Alkaline Phosphatase 79 U/L (46-116) Troponin I Quantitative < 0.017 ng/mL (0.000-0.055) Total Protein 7.0 g/dL (6.4-8.2) Albumin 3.3 g/dL (3.4-5.0) L Albumin/Globulin Ratio 0.9 (1.0-1.7) L Laboratory Tests 06/28/19 19:15 Laboratory Tests 06/28/19 19:15 (OLAYINKA BAKER MD) Lab Values Laboratory Tests Test 06/28/19 19:15 White Blood Count 9.6 x10^3/uL (4.0-11.0) Red Blood Count 4.22 x10^6/uL (3.50-5.40) Hemoglobin 12.9 g/dL (12.0-15.5) Hematocrit 39.0 % (36.0-47.0) Mean Corpuscular Volume 92 fL (79-100) Mean Corpuscular Hemoglobin 31 pg (25-35) Mean Corpuscular Hemoglobin Concent 33 g/dL (31-37) Red Cell Distribution Width 13.3 % (11.5-14.5) Platelet Count 282 x10^3/uL (140-400) Neutrophils (%) (Auto) 44 % (31-73) Lymphocytes (%) (Auto) 48 % (24-48) Monocytes (%) (Auto) 7 % (0-9) Eosinophils (%) (Auto) 1 % (0-3) Basophils (%) (Auto) 0 % (0-3) Neutrophils # (Auto) 4.2 x10^3/uL (1.8-7.7) Lymphocytes # (Auto) 4.6 x10^3/uL (1.0-4.8) Monocytes # (Auto) 0.7 x10^3/uL (0.0-1.1) Eosinophils # (Auto) 0.1 x10^3/uL (0.0-0.7) Basophils # (Auto) 0.0 x10^3/uL (0.0-0.2) Segmented Neutrophils % 42 % (35-66) Lymphocytes % 48 % (24-48) Atypical Lymphocytes % (Manual) 3 % (0-0) H Monocytes % 5 % (0-10) Eosinophils % 2 % (0-5) Platelet Estimate Adequate (ADEQUATE) Sodium Level 140 mmol/L (136-145) Potassium Level 3.8 mmol/L (3.5-5.1) Chloride Level 103 mmol/L (98-107) Carbon Dioxide Level 31 mmol/L (21-32) Anion Gap 6 (6-14) Blood Urea Nitrogen 13 mg/dL (7-20) Creatinine 0.7 mg/dL (0.6-1.0) Estimated GFR (Cockcroft-Gault) 86.9 BUN/Creatinine Ratio 19 (6-20) Glucose Level 104 mg/dL (70-99) H Calcium Level 8.9 mg/dL (8.5-10.1) Total Bilirubin 0.1 mg/dL (0.2-1.0) L Aspartate Amino Transferase (AST) 42 U/L (15-37) H Alanine Aminotransferase (ALT) 72 U/L (14-59) H Alkaline Phosphatase 79 U/L (46-116) Troponin I Quantitative < 0.017 ng/mL (0.000-0.055) Total Protein 7.0 g/dL (6.4-8.2) Albumin 3.3 g/dL (3.4-5.0) L Albumin/Globulin Ratio 0.9 (1.0-1.7) L Laboratory Tests 06/28/19 19:15 Laboratory Tests 06/28/19 19:15 (ABISAI DAVIS APRN) EKG EKG [] (ABISAI DAVIS APRN) Radiology/Procedures Radiology/Procedures [] (ABISAI DAVIS APRN) Course & Med Decision Making Course & Med Decision Making Pertinent Labs and Imaging studies reviewed. (See chart for details) [Patient reports she is feeling much better at this time, is all just a little bit of nausea. Discussed importance of following up, hydration, rest. We'll provide prescription for antinausea medication for patient. Patient and agree with this plan] (ABISAI DAVIS APRN) Dragon Disclaimer Dragon Disclaimer This electronic medical record was generated, in whole or in part, using a voice recognition dictation system. (ABISAI DAVIS APRN) Departure Departure Impression: Primary Impression: Nausea Additional Impression: Light-headed feeling Disposition: HOME, SELF-CARE Condition: GOOD Referrals: KIT GONZALEZ MD (PCP) Patient Instructions: Nausea, Adult Additional Instructions: As discussed, make sure staying hydrated, drink plenty of fluids. Try to follow up with her primary care provider in the next couple days Scripts Metoclopramide Hcl (REGLAN) 10 Mg Tablet 1 TAB PO TID, #15 TAB 0 Refills before food and bedtime Prov: ABISAI DAVIS APRN 06/28/19 Problem Qualifiers ABISAI DAVIS APRN Jun 28, 2019 19:09 OLAYINKA BAKER MD Jun 29, 2019 02:36
[2019-06-28] MEDS ORDERED: ONDANSETRON PF 4 MG/2 ML VIAL. IV ONE (19:15)
[2019-06-28] MEDS ORDERED: IV NORMAL SALINE 1000ML BAG 1,000 ML IV ONE (19:15)
[2019-06-28] MEDS ORDERED: IPRATRPIUM/ALBUTEROL 0.5/2.5MG 3 ML NEBU. NEB ONE (19:15)
[2019-06-28 19:26] LABS: BASO % 0 % (0-3); EOS # 0.1 x10^3/uL (0.0-0.7); EOS % 1 % (0-3); HEMOGLOBIN 12.9 g/dL (12.0-15.5); LYMPH # 4.6 x10^3/uL (1.0-4.8); LYMPH % 48 % (24-48); MEAN CORPUSCULAR HEMOGLOBIN 31 pg (25-35); MEAN CORPUSCULAR HGB CONC 33 g/dL (31-37); MEAN CORPUSCULAR VOLUME 92 fL (79-100); MONO # 0.7 x10^3/uL (0.0-1.1); MONO % 7 % (0-9); NEUT # 4.2 x10^3/uL (1.8-7.7); NEUT % 44 % (31-73); PLATELET COUNT 282 x10^3/uL (140-400); RED BLOOD COUNT 4.22 x10^6/uL (3.50-5.40); RED CELL DISTRIBUTION WIDTH 13.3 % (11.5-14.5); WHITE BLOOD COUNT 9.6 x10^3/uL (4.0-11.0)
[2019-06-28 19:41] LABS: CALCIUM 8.9 mg/dL (8.5-10.1); CREATININE 0.7 mg/dL (0.6-1.0); GFR 86.9; POTASSIUM 3.8 mmol/L (3.5-5.1)
[2019-06-28 19:46] LABS: ALBUMIN 3.3 g/dL (3.4-5.0); ALBUMIN/GLOBULIN RATIO 0.9 (1.0-1.7); TOTAL BILIRUBIN 0.1 mg/dL (0.2-1.0)
[2019-06-28 20:13] LABS: % ATYL 3 % (0-0); % EOS 2 % (0-5); % LYMPHS 48 % (24-48); % MONOS 5 % (0-10); % SEGS 42 % (35-66)
[2019-06-28 20:14] LABS: PLT ESTIMATE ADEQUATE (ADEQUATE)
[2019-06-28] MEDS ORDERED: METO10TA81 PO (21:35)
[2019-06-28 21:40] VITALS: BP 127/76
--- NOTE | 2019-06-30 12:48 | EKG ---
[facility] [address] [place] [address] Test Date: 2019-06-28 Test Time: 19:36:27 Pat Name: ARACELIS HORNE Department: Room: Gender: F [employer] Block Setter: : 1965 Requested By: ABISAI DAVIS Order Number: [id number] Reading MD: Measurements Intervals [place] Rate: 62 P: 48 [place]: 150 QRS: 33 QRSD: 72 T: 41 QT: 410 QTc: 418 Interpretive Statements SINUS RHYTHM NO SPECIFIC ECG ABNORMALITIES RI6.01 No previous ECG available for comparison
== END 2019-06-28 21:45 | disposition home or self-care (01) ==
LOC: ER 17:53
DX: R42 Dizziness and giddiness (principal); R11.2 Nausea with vomiting, unspecified; J44.9 Chronic obstructive pulmonary disease, unspecified; K21.9 Gastro-esophageal reflux disease without esophagitis; F32.9 Major depressive disorder, single episode, unspecified; F41.9 Anxiety disorder, unspecified; Z90.49 Acquired absence of other specified parts of digestive tract; Z86.79 Personal history of other diseases of the circulatory system
CPT/HCPCS: 36415; 80053; 84484; 85007; 85025; 93005; 94640; 96361; 96374; 99285; J2405; J7030; J7620